=== PATIENT | female | born 1950 | race African-American/Black ===

== ENCOUNTER 2018-06-23 08:38 | Outpatient (CLI) | payer BC | END 2018-06-23 08:39 | disposition home or self-care (01) | LOC: BICMAMMO 08:38 | PROVIDERS: ATTEND Family Medicine | DX: Z12.31 Encounter for screening mammogram for malignant neoplasm of breast (principal); M81.0 Age-related osteoporosis without current pathological fracture; M85.88 Other specified disorders of bone density and structure, other site; Z85.038 Personal history of other malignant neoplasm of large intestine | CPT/HCPCS: 77063; 77067; 77080 ==

== ENCOUNTER 2018-11-01 10:40 | Outpatient (CLI) | payer BC ==
--- NOTE | 2018-11-01 11:21 | RAD ---
TWO VIEW CHEST: Clinical history: COPD with shortness of breath, chronic bronchitis. FINDINGS: Lungs are hyperinflated. There is interstitial prominence bilaterally. Cardiac silhouette is normal i n size. IMPRESSION: 1. Hyperinflated lungs indicating COPD. 2. No lobar consolidation. POS: [facility]
== END 2018-11-01 10:41 | disposition home or self-care (01) ==
LOC: BICRAD 10:40
PROVIDERS: ATTEND Family Medicine
DX: J44.9 Chronic obstructive pulmonary disease, unspecified (principal); R06.02 Shortness of breath
CPT/HCPCS: 71046

== ENCOUNTER 2018-11-28 07:58 | Outpatient (CLI) | payer BC | END 2018-11-28 07:59 | disposition home or self-care (01) | LOC: CP 07:58 | PROVIDERS: ATTEND Family Medicine | DX: J44.9 Chronic obstructive pulmonary disease, unspecified (principal); R06.02 Shortness of breath; R06.09 Other forms of dyspnea; F17.200 Nicotine dependence, unspecified, uncomplicated | CPT/HCPCS: 94060; 94727; 94729 ==

== ENCOUNTER 2019-12-19 09:37 | Outpatient (CLI) | payer BC ==
--- NOTE | 2019-12-19 10:32 | MMO ---
Bilateral MAMMO Bilat Screen [facility]. CLINICAL HISTORY: Patient is 69 years old and is seen for screening. The patient has no family history of breast cancer. The patient has a history of bilateral Excisional Biopsy in 1972 - benign. VIEWS: The views performed were: bilateral craniocaudal with tomosynthesis and bilateral mediolateral oblique with tomosynthesis. FILMS COMPARED: The present examination has been compared to prior imaging studies performed at [facility] on 06/11/2015, 06/14/2016, 06/15/2017 and 06/23/2018. This study has been interpreted with the assistance of computer-aided detection. MAMMOGRAM FINDINGS: There are scattered fibroglandular densities. There are stable benign appearing calcifications seen in both breasts. There are no suspicious masses, suspicious calcifications, or new areas of architectural distortion. IMPRESSION: THERE IS NO MAMMOGRAPHIC EVIDENCE OF MALIGNANCY. A ROUTINE FOLLOW-UP MAMMOGRAM IN 1 YEAR IS RECOMMENDED. THE RESULTS OF THIS EXAM WERE SENT TO THE PATIENT. ACR BI-RADS Category 2 - Benign finding MAMMOGRAPHY NOTE: 1. A negative mammogram report should not delay a biopsy if a dominant of clinically suspicious mass is present. 2. Approximately 10% to 15% of breast cancers are not detected by mammography. 3. Adenosis and dense breasts may obscure an underlying neoplasm. Reported by: VIN CANO MD Electonically Signed: [id number]
== END 2019-12-19 09:38 | disposition home or self-care (01) ==
LOC: BICMAMMO 09:37
PROVIDERS: ATTEND Family Medicine
DX: Z12.31 Encounter for screening mammogram for malignant neoplasm of breast (principal); Z91.89 Other specified personal risk factors, not elsewhere classified
CPT/HCPCS: 77063; 77067

== ENCOUNTER 2020-10-15 08:57 | Outpatient (CLI) | payer MEDICARE ==
--- NOTE | 2020-10-15 09:43 | MMO ---
Bilateral MAMMO Bilat Diag [facility]. CLINICAL HISTORY: Patient is 69 years old and is seen for diagnostic exam and palpable abnormality in the left breast. The patient has no family history of breast cancer. The patient has a history of bilateral Excisional Biopsy in 1972 - benign. VIEWS: The views performed were: bilateral craniocaudal with tomosynthesis; bilateral mediolateral oblique with tomosynthesis; and bilateral mediolateral with tomosynthesis. FILMS COMPARED: The present examination has been compared to prior imaging studies performed at [facility] on 06/15/2017, 06/23/2018, 12/19/2019 and 10/15/2020. This study has been interpreted with the assistance of computer-aided detection. MAMMOGRAM FINDINGS: There are scattered fibroglandular densities. Finding 1: There are stable benign appearing calcifications seen in both breasts. Finding 2: No mammographic or ultrasound finding to account for the palpable finding. Upper outer left There are no suspicious masses, suspicious calcifications, or new areas of architectural distortion. IMPRESSION: THERE IS NO MAMMOGRAPHIC EVIDENCE OF MALIGNANCY. A ROUTINE FOLLOW-UP MAMMOGRAM IN 1 YEAR IS RECOMMENDED. THE RESULTS OF THIS EXAM WERE SENT TO THE PATIENT. ACR BI-RADS Category 2 - Benign finding MAMMOGRAPHY NOTE: 1. A negative mammogram report should not delay a biopsy if a dominant of clinically suspicious mass is present. 2. Approximately 10% to 15% of breast cancers are not detected by mammography. 3. Adenosis and dense breasts may obscure an underlying neoplasm. Reported by: SPARKLE ISABEL MD Electonically Signed: [id number]
--- NOTE | 2020-10-15 14:01 | ULT ---
EXAM: LEFT BREAST ULTRASOUND LIMITED: 10/15/20 HISTORY: Palpable finding in the upper left breast. Attention is paid to the palpable finding in the upper outer left breast. There is no evidence for so lid or cystic mass or other ultrasound abnormality. No abnormal mammographic findings were noted in t his region of the breast. IMPRESSION: BIRADS 2: Benign Finding(s) Routine annual screening mammography (for women over age 40). No ultrasound or mammographic abnormality noted in region of palpable concern in the upper outer left breast. Continued annual follow-up screening mammograms. POS: OFF
== END 2020-10-15 08:58 | disposition home or self-care (01) ==
LOC: BICMAMMO 08:57
PROVIDERS: ATTEND Family Medicine
DX: R92.8 Other abnormal and inconclusive findings on diagnostic imaging of breast (principal); N63.20 Unspecified lump in the left breast, unspecified quadrant
CPT/HCPCS: 76642; 77066; G0279

== ENCOUNTER 2022-05-24 11:55 | Outpatient (CLI) | payer OTHER | END 2022-05-24 11:56 | disposition home or self-care (01) | LOC: BICRAD 11:55 | PROVIDERS: ATTEND Internal Medicine Rheumatology | DX: R05.9 Cough, unspecified (principal) | CPT/HCPCS: 71046 ==

== ENCOUNTER 2023-05-18 09:50 | Outpatient (CLI) | payer OTHER | END 2023-05-18 09:51 | disposition home or self-care (01) | LOC: BICMAMMO 09:50 | PROVIDERS: ATTEND Internal Medicine Rheumatology | DX: M81.0 Age-related osteoporosis without current pathological fracture (principal); M85.851 Other specified disorders of bone density and structure, right thigh; M85.852 Other specified disorders of bone density and structure, left thigh | CPT/HCPCS: 77080 ==

== ENCOUNTER 2024-02-22 09:42 | Outpatient (CLI) | payer OTHER | END 2024-02-22 09:43 | disposition home or self-care (01) | LOC: BICMAMMO 09:42 | PROVIDERS: ATTEND Family Medicine | DX: Z12.31 Encounter for screening mammogram for malignant neoplasm of breast (principal); Z91.89 Other specified personal risk factors, not elsewhere classified | CPT/HCPCS: 77063; 77067 ==

== ENCOUNTER 2025-07-23 10:50 | Outpatient (CLI) | payer MEDICARE | END 2025-07-23 10:51 | disposition home or self-care (01) | LOC: BICRAD 10:50 | PROVIDERS: ATTEND Family Medicine | DX: J18.0 Bronchopneumonia, unspecified organism (principal) | CPT/HCPCS: 71046 ==